=== PATIENT | female | born 1940 | race Hispanic/Latino ===

== ENCOUNTER 2021-08-29 11:03 | Emergency (ER) | payer MEDICARE ==
[~2021-08-29] VITALS: Ht 152.4 cm; Wt 74.8 kg
[2021-08-29 17:13] VITALS: BP 116/62
== END 2021-08-29 17:15 | disposition home or self-care (01) ==
LOC: EDH 11:03
DX: S01.01XA Laceration without foreign body of scalp, initial encounter (principal); I10 Essential (primary) hypertension; K21.9 Gastro-esophageal reflux disease without esophagitis; Z88.1 Allergy status to other antibiotic agents; Z88.5 Allergy status to narcotic agent; Z88.8 Allergy status to other drugs, medicaments and biological substances; W18.39XA Other fall on same level, initial encounter; Y93.89 Activity, other specified; Y92.89 Other specified places as the place of occurrence of the external cause; Y99.8 Other external cause status
CPT/HCPCS: 12001; 70450; 93005